=== PATIENT | female | born 1990 | race Caucasian/White ===

== ENCOUNTER 2021-09-11 08:12 | Outpatient (CLI) | payer SELFPAY ==
[2021-09-11 08:51] VITALS: BP 123/69
[2021-09-11] MEDS ORDERED: LACTATED RINGERS 500 ML IV ONE (08:55)
--- NOTE | 2021-09-11 10:17 | Ultrasound Report ---
ULTRASOUND OBSTETRIC INDICATION / CLINICAL INFORMATION: BLEEDING, UNABLE TO DETECT HEART TONES. TECHNIQUE: Transabdominal. COMPARISON: None available. FINDINGS: GESTATIONAL SAC: Well-defined oval shape and intrauterine in location. YOLK SAC: Not identified EMBRYO/FETUS: No significant abnormality. - [place]-Rump Length = 2.16 cm = 8, 6 weeks, days - Heart Rate, beats per minute (if present) = 174 ADNEXA: 4.6 cm right ovarian cyst and 2.3 cm left ovarian cyst. FREE FLUID: None. ADDITIONAL FINDINGS: Small subchorionic hematoma measuring approximately 1.8 x 1.2 cm. IMPRESSION: 1. Single, living intrauterine with estimated sonographic age of 8, 6 weeks, days. 2. Small subchorionic hematoma. Recommend continued clinical and sonographic follow-up as clinically indicated. Signer Name: Kyler Eubanks MD Signed: 09/11/2021 10:12 AM Workstation Name: [employer]
[2021-09-11 16:50] LABS: Bilirubin,Urine NEG (Negative); Blood,Urine LG (Negative); Color,Urine Yellow (Yellow); Mucus,Urine FEW /HPF; Protein,Urine <15 mg/dL mg/dL (Negative); Urobilinogen,Urine < 2.0 mg/dL (<2.0)
== END 2021-09-11 09:45 | disposition home or self-care (01) ==
LOC: EDBD 08:12 → TRG 08:12 → APU 08:13 → TRG 09:45
PROVIDERS: ATTEND Obstetrics & Gynecology
DX: O46.92 Antepartum hemorrhage, unspecified, second trimester (principal); Z3A.24 24 weeks gestation of pregnancy
CPT/HCPCS: 59025; 76801; 81001